=== PATIENT | male | born 1960 | race American Indian/Alaskan Native ===

== ENCOUNTER 2017-08-29 15:11 | Inpatient (IN) | payer MEDICAID ==
[2017-08-29 15:12] VITALS: BMI 29.8
[2017-08-29 16:56] LABS: SQUAMOUS EPITHIAL < 1 /hpf (0-5); URINE BACTERIA RARE (<OCC); URINE BILIRUBIN NEGATIVE (NEGATIVE); URINE CLARITY Clear (Clear); URINE COLOR Straw (YELLOW); URINE GLUCOSE (UA) NORMAL (Normal); URINE LEUKOCYTE ESTERASE NEG Leu/uL (Negative); URINE PROTEIN 2+ mg/dL (NEGATIVE); URINE UROBILINOGEN NORMAL mg/dL (0.2-1.0)
[2017-08-29 16:58] LABS: URINE BLOOD TRACE (NEGATIVE)
[2017-08-29 17:11] LABS: BARBITURATES, UR NEGATIVE (NEGATIVE); BENZODIAZEPINES, UR NEGATIVE (NEGATIVE); OPIATES, UR POSITIVE (NEGATIVE); PHENCYCLIDINE, UR NEGATIVE (NEGATIVE)
[2017-08-29 17:29] LABS: BASO # 0.1 K/uL (0.0-0.2); EOS # 0.1 K/uL (0.0-0.7); EOS % 1.9 % (0.0-4.0); HEMOGLOBIN 17.7 g/dL (12.0-18.0); LYMPH # 1.4 K/uL (1.0-4.3); LYMPH % 24.5 % (20.0-40.0); MEAN CELL VOLUME 91.1 fL (80.0-94.0); MEAN CORPUSCULAR HEMOGLOBIN 30.9 pg (27.0-31.0); MEAN CORPUSCULAR HGB CONC 33.9 g/dL (33.0-37.0); MEAN PLATELET VOLUME 9.2 fL (7.2-11.7); MONO # 0.6 K/uL (0.0-0.8); MONO % 9.8 % (0.0-10.0); NEUT # 3.5 K/uL (1.8-7.0); NEUT % 62.8 % (50.0-75.0); NRBC % 0.2 % (0.0-2.0); RBC 5.71 Mil/uL (4.40-5.90); RED CELL DISTRIBUTION WIDTH 15.2 % (11.5-14.5); WHITE BLOOD COUNT 5.6 K/uL (4.8-10.8)
--- NOTE | 2017-08-29 17:43 | C.PDOC ---
History Of Present Illness 57 year old male with PMHx of HIV and HTN presents to the ED requesting detox from heroin and alcohol use. Patient reports his last use was this morning. Patient denies any physical complaints at this time. Time Seen by Provider: 08/29/17 16:15 Chief Complaint (Nursing): Substance Abuse History Per: Patient History/Exam Limitations: no limitations Onset/Duration Of Symptoms: Days Current Symptoms Are (Timing): Gone Suicide/Self Injury Attempted (Context): None Modifying Factor(s): Alcohol, Other (heroin) Associated Symptoms: denies: Depression, Suicidal Thoughts, Suicidal Plan Involuntary Hold By: None Recent travel outside of the [place]: No Additional History Per: Patient Past Medical History Reviewed: Historical Data, Nursing Documentation, Vital Signs Vital Signs: Last Vital Signs Temp 97.7 F 08/29/17 15:46 Pulse 93 H 08/29/17 15:46 Resp 18 08/29/17 15:46 BP 146/99 H 08/29/17 15:46 Pulse Ox 96 08/29/17 17:44 - Medical History PMH: Diabetes, HIV, HTN, Hyperlipidemia Surgical History: Back Surgery Family History: States: Unknown Family Hx - Social History Hx Alcohol Use: Yes Hx Substance Use: Yes - Immunization History Hx Tetanus Toxoid Vaccination: No Hx Influenza Vaccination: No Hx Pneumococcal Vaccination: No Review Of Systems Constitutional: Negative for: Fever, Chills Cardiovascular: Negative for: Chest Pain Respiratory: Negative for: Shortness of Breath Skin: Negative for: Rash Neurological: Negative for: Weakness, Numbness Psych: Negative for: Depression, Suicidal ideation Physical Exam - Physical Exam Appears: Non-toxic, No Acute Distress Skin: Normal Color, Warm, Dry Head: Atraumatic, Normacephalic Eye(s): bilateral: Normal Inspection Nose: No Discharge Oral Mucosa: Moist Neck: Normal ROM, Supple Chest: Symmetrical Cardiovascular: Rhythm Regular, No Murmur Respiratory: Normal Breath Sounds, No Rales, No Rhonchi, No Wheezing Gastrointestinal/Abdominal: Soft, No Tenderness, No Guarding, No Rebound Extremity: Normal ROM, No Tenderness, No Swelling Neurological/Psych: Oriented x3, Normal Speech Gait: Steady ED Course And Treatment - Laboratory Results Result Diagrams: 08/29/17 17:21 08/29/17 17:21 O2 Sat by Pulse Oximetry: 96 (ON RA) Pulse Ox Interpretation: Normal Medical Decision Making Medical Decision Making: Impression: detox Plan: * Labs * [facility] will admit to detox; pt is medically cleared for detox admission. . to be admitted to Dr Martinez. pt has abnl lft- hx etoh abuse and on HAART meds; suggest inpatient med consult, hepatitis profile. Disposition Discussed With Dr.: Taylor Martinez Doctor Will See Patient In The: Hospital - Disposition Disposition: HOSPITALIZED Disposition Time: 18:20 Condition: GOOD Forms: [employer] (Nepali) - Clinical Impression Clinical Impression: Opioid use disorder, moderate, dependence, Alcohol use disorder - PA / DAIRY CLERK / Resident Statement MD/DO has reviewed & agrees with the documentation as recorded. - Scribe Statement The provider has reviewed the documentation as recorded by the Scribe Kavon Jeffrey All medical record entries made by the Scribe were at my direction and personally dictated by me. I have reviewed the chart and agree that the record accurately reflects my personal performance of the history, physical exam, medical decision making, and the department course for this patient. I have also personally directed, reviewed, and agree with the discharge instructions and disposition.
[2017-08-29 17:50] LABS: ALB/GLOB RATIO 0.8 (1.0-2.1); ALBUMIN 3.8 g/dL (3.5-5.0); ALT/SGPT 101 U/L (21-72); AST/SGOT 138 U/L (17-59); BLOOD UREA NITROGEN 10 mg/dL (9-20); CALCIUM 8.3 mg/dl (8.6-10.4); GFR AFRICAN-AMERICAN > 60; GFR NON-AFRICAN AMERICAN 52
--- NOTE | 2017-08-29 18:40 | PCM.BM ---
<Bushra Elkins - Last Filed: 08/29/17 18:37> Treatment Plan Problems - Problems identified on initial assessmt potiential for opiate withdrawal Date Initiated: 08/29/17 Time Initiated: 18:39 Assessment reference: NA Status: Active potiential for autonomic instability related to alcohol abuse Date Initiated: 08/29/17 Time Initiated: 18:39 Assessment reference: NA Status: Active Treatment assets and liabiliti Patient Assests: ADL independent, cognitively intact Patient Liabilities: substance abuse, medical problems - Milieu Protocol Maintain good personal hygiene: daily Encourage regular showers, daily Remind patient to perform daily oral care, daily Assist patient to perform ADL's Maintain personal safety: every shift Educate patient to report safety concerns to staff, every shift Monitor environment for contraband/sharps Medication safety: Monitor for expected outcome, potential side effects: every shift, Assess barriers to learning: every shift, Assess readiness for medication education: every shift <Taylor Martinez - Last Filed: 08/30/17 14:28> - Diagnosis (1) Alcohol use disorder Status: Acute Interventions: 08/30/17 14:29 * Assess 7x/week regarding severity of withdrawal * Educate regarding risks, benefits, side effects and alternatives of medications * Use Motivational Interviewing for abstinence * Use CBT for relapse prevention * Medication management for withdrawal symptoms * Encourage medication assisted treatment * (2) Opioid use disorder, moderate, dependence Status: Acute Interventions: 08/30/17 14:29 * Assess 7x/week regarding severity of withdrawal * Educate regarding risks, benefits, side effects and alternatives of medications * Use Motivational Interviewing for abstinence * Use CBT for relapse prevention * Medication management for withdrawal symptoms * Encourage medication assisted treatment * <Chloe Griffin - Last Filed: 08/31/17 08:36> Family Contact Family involvement: Patient does not wish Family/SO involvement - Goals for Treatment Patient goals for treatment: Complete detox and transition to methadone maintenance program. Discharge/Continuing Care - Education Needs Education Needs: Patient Medication, Patient Diagnosis/Disease Process, Patient Coping Skills, Patient Anger Management skills, Patient Placement options, Patient Community resources - Discharge Discharge Criteria: No longer exhibiting s/s of withdrawal, Reduction of target symptoms Discharge to:: Home - Treatment Team Participation Patient/Family/SO Statement: 08/31/17 08:36 "I wanna do methadone at [facility]". Discussed with Family/SO: No Was Patient/Family/SO present at Treatment Team Meeting: Yes
[2017-08-29] MEDS ORDERED: Aluminum Hydroxide/Magnesium Hydroxide Susp (30 mL) PO PRN (18:41)
[2017-08-30] MEDS: Multiple Vitamins Tab PO SCH (09:09)
[2017-08-30] MEDS: BIKTARVY PO SCH (09:11)
--- NOTE | 2017-08-30 14:33 | PCM.PSYCH ---
Initial Psychiatric Evaluation - Initial Psychiatric Evaluation Type of Admission: Voluntary Legal Status: Capacity Chief Complaint (in patient's own words): "I need to stop this" History of Present Illness and Precipitating Events: The patient is seen, chart reviewed and case discussed. This is a 57-year-old -[place] male, in 1992, has 3 adult children. He lives alone and he is on disability because of an accident and disc hernia. The patient has been using heroin for about 40 years and lately he is on 4-5 backs off heroin intranasally. He had used methadone until June and his dose was 50 mg but he was detoxed. He also drinks a bottle of wine and a 6 pack per day beer, again, for 40 years. No DTs or seizures. He used cocaine in the past but has been clean for a long time. He smokes 1 pack per day cigarettes. Denies other drugs. This is his first detox and he has never been to rehabilitation other than some program in retirement where he stayed for 4 years. Past psych history: Denies Family psych still: Sr. was an alcoholic. Medical history: HIV, hepatitis C, high blood pressure Current Medications: Active Medications Generic Name Dose Route Start Last Admin Trade Name Freq PRN Reason Stop Dose Admin Al Hydrox/Mg Hydrox/Simethicone 30 ml 08/29/17 18:41 Maalox 30 Ml PO TID PRN Indigestion / Heartburn Chlordiazepoxide 25 mg 08/29/17 18:45 08/29/17 20:46 Librium PO 25 mg Q4H PRN Administration Alcohol Withdrawal Chlordiazepoxide 25 mg 08/30/17 10:00 08/30/17 09:10 Librium PO 09/04/17 09:59 25 mg Q6H ROMMEL Administration Taper Clonidine HCl 0.1 mg 08/29/17 18:41 08/30/17 10:43 Catapres PO 0.1 mg Q8 PRN Administration COWS Score More or Equal to 5 Folic Acid 1 mg 08/30/17 10:00 08/30/17 09:09 Folic Acid PO 1 mg DAILY ROMMEL Administration Home Med 1 tab 08/30/17 10:00 08/30/17 09:11 Patient's Own Medication PO 09/15/17 10:01 1 tab DAILY ROMMEL Administration Hydroxyzine HCl 50 mg 08/29/17 18:42 Atarax PO Q6H PRN Anxiety Lisinopril 10 mg 08/30/17 10:00 08/30/17 09:10 Zestril PO 10 mg DAILY ROMMEL Administration Loperamide HCl 2 mg 08/29/17 18:41 Imodium PO Q8 PRN Diarrhea Methadone HCl 15 mg 08/30/17 10:00 08/30/17 09:10 Methadone PO 09/03/17 09:59 15 mg Q24H ROMMEL Administration Taper Multivitamins 1 tab 08/30/17 10:00 08/30/17 09:09 Hexavitamin PO 1 tab DAILY ROMMEL Administration Ondansetron HCl 4 mg 08/29/17 18:41 Zofran Tab PO Q8 PRN Nausea/Vomiting Thiamine HCl 100 mg 08/30/17 10:00 08/30/17 09:09 Vitamin B1 Tab PO 100 mg DAILY ROMMEL Administration Trazodone HCl 100 mg 08/29/17 18:42 Desyrel PO HS PRN Insomnia Past Psychiatric History - Past Psychiatric History Previous Treatment History: None Pertinent Medical Hx (Current Medical&Sleep Prob, Allergies): Allergies Allergy/AdvReac Type Severity Reaction Status Date / Time No Known Allergies Allergy Verified 08/11/16 15:17 Atorvastatin Calcium 20 mg PO DAILY 08/29/17 Bictegrav/Emtricit/Tenofov Ala [Biktarvy 50-200-25 mg Tablet] 1 each PO DAILY Lisinopril [Prinivil] 10 mg PO DAILY 08/29/17 Multivitamin [Multivitamin] 1 sgl PO DAILY 08/29/17 Review of Systems - Neurological Neurological: UNREMARKABLE - Psychiatric Psychiatric: Abnormal Sleep Pattern, Anxiety, Difficulty Concentrating, Irritability. absent: Hallucinations, Homicidal Ideation, Paranoia, Suicidal Ideation Mental Status Examination - Personal Presentation Personal Presentation: Looks stated age - Affect Affect: Constricted - Motor Activity Motor Activity: Calm - Reliability in Providing Information Reliability in Providing Information: Good - Speech Speech: Organized - Mood Mood: Anxious - Formal Thought Process Formal Thought Process: No Impairment - Cognitive Functions Orientation: Person, Place, Situation, Time Sensorium: Alert Attention/Concentration: Attentive Estimate of Intelligence: Average Judgement: Intact, as evidence by: Insight regarding need for hospitalization Memory: Recent intact, as evidence by: Ability to recall events of the day, Remote intact, as evidenced by: Abilit to recall sig. life events - Risk Risk: Withdrawal, Diminished functioning - Strength & Assets Inventory Strength & Assets Inventory: Cooperative - Limitations Limitations: Living alone DSM 5 DX - DSM 5 DSM 5 Diagnosis: Opioid withdrawal Opioid use d/o - severe Alcohol use d/o - severe Alcohol withdrawal Tobacco use d/o- severe HTN HIV Hep C - Recommended/Plan of Treatment Treatment Recommendations and Plan of Treatment: Start taper with subutex and librium Gabapentin for augmentation As needed medications All risks, benefits and alternatives of the meds discussed, and the pt agreed and understood. Attend groups and activities Supportive therapy and psychoeducation [place] for abstinence CBT for relapse prevention Encourage MAT Refer to rehab or IOP, and self-help groups Smoking cessation with [place] Nicotine patch if needed 34 min Projected ELOS: 4-5 days Prognosis: good with treatment Discharge Plan and Discharge Criteria: Suboxone and IOP - Smoking Cessation Smoking Cessation Initiated: Yes
[2017-08-31] MEDS: Multiple Vitamins Tab PO SCH (09:33)
[2017-08-31] MEDS: BIKTARVY PO SCH (09:35)
--- NOTE | 2017-08-31 13:47 | PCM.PYCHPN ---
Psychiatric Progress Note - Psychiatric Progress Note Patient seen today, length of contact: 16 min Patient Chief Complaint: "I am better" Problems Identified/Issues Discussed: The pt is seen, chart reviewed, case discussed with staff. The pt is compliant with medications and reports no side-effects. Symptoms are improving but needs more time to stabilize. After care discussed, support and psychoeducation given. Medication Change: Yes (detox changes daily) Medical Record Reviewed: Yes Mental Status Examination - Cognitive Function Orientation: Person, Place, Situation, Time Memory: Intact Attention: WNL Concentration: WNL Association: WNL Fund of Knowledge: WNL - Mood Mood: Anxious - Affect Affect: Constricted - Speech Speech: Appropriate - Formal Thought Process Formal Thought Process: No Impairment - Suicidal Ideation Suicidal Ideation: No - Homicidal Ideation Homicidal Ideation: No Goal/Treatment Plan - Goal/Treatment Plan Need for Continued Stay: Discharge may exacerbated symptoms, Severe functional impairment Progress Toward Problem(s) and Goals/Treatment Plan: Taper with subutex and librium Gabapentin for augmentation As needed medications All risks, benefits and alternatives of the meds discussed, and the pt agreed and understood. Attend groups and activities Supportive therapy and psychoeducation [place] for abstinence CBT for relapse prevention Encourage MAT Refer to rehab or IOP, and self-help groups Smoking cessation with [place] Nicotine patch if needed
--- NOTE | 2017-09-01 08:36 | PCM.PYCHDC ---
Mental Status Examination - Mental Status Examination Orientation: Person Discharge Summary - Discharge Note Consultations:: List each consultation separately and include: 1. Reason for request. 2. Findings. 3. Follow-up Summary of Hospital Course include:: 1. Description of specific treatment plan utilized for patients during their course of treatmen. 2. Summarize the time- course for resolution of acute symptoms and/or regressed behaviors. 3. Describe issues identified and worked on during hospitalization. 4. Describe medication utilized. 5. Describe medical problems identified and treated. 6. Reassessment of suicide risk Summary of Hospital Course: The patient is seen, chart reviewed and case discussed. This is a 57-year-old -[place] male, in 1993, has 3 adult children. He lives alone and he is on disability because of an accident and disc hernia. The patient has been using heroin for about 40 years and lately he is on 4-5 backs off heroin intranasally. He had used methadone until June and his dose was 50 mg but he was detoxed. He also drinks a bottle of wine and a 6 pack per day beer, again, for 40 years. No DTs or seizures. He used cocaine in the past but has been clean for a long time. He smokes 1 pack per day cigarettes. Denies other drugs. This is his first detox and he has never been to rehabilitation other than some program in nursing home where he stayed for 4 years. Past psych history: Denies Family psych still: Sr. was an alcoholic. Medical history: HIV, hepatitis C, high blood pressure He left a day early - risks discussed. - Diagnosis (1) Alcohol use disorder Current Visit: Yes Status: Acute (2) Opioid use disorder, moderate, dependence Current Visit: Yes Status: Acute - Final Diagnosis (DSM 5) Condition upon Discharge: GOOD Disposition: HOME/ ROUTINE Follow-up Treatment Plan: Start taper with subutex and librium Gabapentin for augmentation As needed medications All risks, benefits and alternatives of the meds discussed, and the pt agreed and understood. Attend groups and activities Supportive therapy and psychoeducation [place] for abstinence CBT for relapse prevention Encourage MAT Refer to rehab or IOP, and self-help groups Smoking cessation with [place] Nicotine patch if needed 34 min
[2017-09-01 08:57] VITALS: RESP 20; TEMP 97.3; O2SAT 94
[2017-09-01] MEDS: Multiple Vitamins Tab PO SCH (09:14)
[2017-09-01] MEDS: BIKTARVY PO SCH (09:16)
[2017-09-01 10:04] VITALS: BP 140/89; PULSE 91
== END 2017-09-01 10:05 | disposition home or self-care (01) | DRG 744 ==
LOC: C.ER 15:11 → C.7D 18:21
PROVIDERS: ADMIT Psychiatry & Neurology Psychiatry; ATTEND Psychiatry & Neurology Psychiatry
PROC: HZ52ZZZ Individual Psychotherapy for Substance Abuse Treatment, Cognitive-Behavioral (ICD-10-PCS; principal; 2017-08-29)
PROC: HZ2ZZZZ Detoxification Services for Substance Abuse Treatment (ICD-10-PCS; 2017-08-29)
PROC: HZ83ZZZ Medication Management for Substance Abuse Treatment, Antabuse (ICD-10-PCS; 2017-08-29)
PROC: HZ59ZZZ Individual Psychotherapy for Substance Abuse Treatment, Supportive (ICD-10-PCS; 2017-08-29)
PROC: HZ56ZZZ Individual Psychotherapy for Substance Abuse Treatment, Psychoeducation (ICD-10-PCS; 2017-08-29)
DX: F11.23 Opioid dependence with withdrawal (principal); B19.20 Unspecified viral hepatitis C without hepatic coma; F17.210 Nicotine dependence, cigarettes, uncomplicated; I10 Essential (primary) hypertension; E11.9 Type 2 diabetes mellitus without complications; E78.5 Hyperlipidemia, unspecified; F10.239 Alcohol dependence with withdrawal, unspecified